=== PATIENT | female | born 1985 | race Caucasian/White ===

== ENCOUNTER 2019-06-01 08:21 | Emergency (ER) | payer OTHER, SELFPAY ==
[2019-06-01] VITALS (11 sets, daily range): BP systolic 99–119; BP diastolic 31–78; PULSE 56–86; RESP 15–22; TEMP 36.9; O2SAT 98–100
[2019-06-01 10:04] LABS: Hematocrit 48.4 % (36-46); Hemoglobin 16.5 g/dL (12.0-16.0); Mean Corpuscular HGB Conc 34.1 % (30-36); Mean Corpuscular Hemoglobin 30.5 PG (26-34); Mean Corpuscular Volume 89.6 fL (80-100); Red Cell Distribution Width 12.9 % (11.6-14.8); White Blood Cell Count 4.9 X10^3/uL (4.5-11.0)
[2019-06-01 10:13] LABS: Alanine Aminotransferase 20 IU/L (9-52); Albumin 4.5 g/dL (3.5-5.0); Albumin Globulin Ratio 1.4 (1.0-2.8); Alkaline Phosphatase 117 U/L (38-126); Aspartate Aminotransferase 25 IU/L (14-36); Bilirubin Total 0.6 mg/dL (0.2-1.3); Blood Urea Nitrogen 12 mg/dL (7-17); Calcium 9.6 mg/dL (8.4-10.2); Carbon Dioxide 27 mmol/L (22-32); Chloride 100 mmol/L (98-107); Estimated Glomerular Filt Rate > 60.0 mL/min (>60); Globulin 3.2 g/dL (1.7-4.1); Glucose 345 mg/dL (70-100); HEMOLYSIS 17 (0-50); Potassium 4.4 mmol/L (3.4-5.1); Sodium 136 mmol/L (137-145); Total Protein 7.7 g/dL (6.3-8.2)
--- NOTE | 2019-06-01 10:14 | ED.WEAKNESS ---
HPI - Weakness General Chief complaint: Weakness Stated complaint: FATIGUE,THIRSTY,FREQUENT URINATION Time Seen by Provider: 06/01/19 08:31 Source: patient Mode of arrival: ambulatory Limitations: no limitations History of Present Illness HPI Narrative: Patient comes emergency department complaining of excessive thirst and frequent urination, as well as fatigue, which have been going on for the last 2 weeks. Patient states she also feels jittery most of the time. She denies any fevers or chills. No cough or shortness of breath. No unusual nausea, the patient states she is nauseated all the time at baseline. Patient has a history of colitis, and has had a complete colectomy with internal J pouch. She states that she is able to have bowel movements through her anus, and that they are normally quite watery. She states occasionally, she will have a slightly thicker bowel movement, but it is still always very runny. Patient states that she has been able to eat, and in fact, has been eating more food than usual lately. She denies any dizziness. No other complaints at this time. She is not known to be diabetic. She had her thyroid last checked a couple of years ago and said it was okay. She states she did have some adrenal issues after being on long-term, high-dose prednisone years ago, but that she has not been on prednisone for years, and is not aware of any ongoing adrenal issues stemming from this. Related Data Previous Rx's Medication Instructions Recorded metformin 500 mg PO BID #30 tab 06/01/19 Allergies Allergy/AdvReac Type Severity Reaction Status Date / Time No Known Drug Allergies Allergy Verified 06/01/19 08:50 Review of Systems Constitutional Constitutional: Denies chills, Reports fatigue, Denies fever(s), Denies frequent falls, Denies lethargy and Denies weakness Eyes Eyes: Denies change in vision, Denies eye discharge, Denies irritation and Denies loss of vision ENT Ears, Nose, Mouth, and Throat: Denies change in voice, Denies dizziness, Denies neck pain, Denies sore throat and Denies throat swelling Cardiovascular Cardiovascular: Denies chest pain, Denies irregular heart rhythm, Denies lightheadedness, Denies palpitations, Denies dyspnea, Denies dyspnea on exertion and Denies orthopnea Respiratory Respiratory: Denies cough, Denies dyspnea, Denies dyspnea on exertion and Denies wheezing Gastrointestinal Gastrointestinal: Denies abdominal pain, Denies change in bowel habits, Reports diarrhea (At baseline), Reports nausea and Denies vomiting Genitourinary Genitourinary: Denies hematuria, Denies flank pain, Denies urinary incontinence and Denies urinary urgency Musculoskeletal Musculoskeletal: Denies back pain, Denies muscle weakness, Denies neck pain, Denies numbness and Denies tingling Integumentary/Breasts Skin/Breast: Denies pruritus, Denies erythema, Denies rash and Denies wounds Neurologic Neurologic: Denies behavioral changes, Denies confusion, Denies dizziness, Denies frequent falls, Denies loss of vision, Denies numbness, Denies tingling and Denies weakness Psychiatric Psychiatric: Denies anxiety, Denies behavioral changes, Denies confusion, Denies depression, Denies homicidal ideation and Denies suicidal ideation Endocrine Endocrine: Reports fatigue, Denies flushing, Reports polyphagia, Reports polydipsia, Reports polyuria and Denies palpitations Hematologic/Lymphatic Hematologic/Lymphatic: Denies easy bruising Allergic/Immunologic Allergic/Immunologic: Denies urticaria, Denies throat swelling and Denies wheezing [facility] Medical History Colitis (Acute) Endometrial polyp (Inactive) Right ovarian cyst (Inactive) Small bowel obstruction due to adhesions (Inactive) Surgical History H/O colectomy (Acute) History of bowel resection History of removal of ovarian cyst (Acute) Status post ovarian cystectomy Family History (Updated 08/30/16 @ 00:00 by Conversion Provider) Brother Age: 30 Mental health problem Father Age: 54 High cholesterol Grandfather Age: 67 Heart disease Social History Smoking Status: Current every day smoker Family History Brother Age: 30 Mental health problem Father Age: 54 High cholesterol Grandfather Age: 67 Heart disease Social History Smoking Status: Current every day smoker Exam Initial Vital Signs Initial Vital Signs: Vital Signs Temperature 98.4 F 06/01/19 08:30 Pulse Rate 65 09/19/19 08:30 Respiratory Rate 20 06/01/19 08:30 Blood Pressure 119/78 06/01/19 08:30 Pulse Oximetry 100 06/01/19 08:30 Const General: cooperative and well developed Nutritional Appearance: thin Orientation: alert, awake, oriented x3 and not confused [facility] Head: normocephalic and atraumatic Ears: external ears normal Nose: external nose normal and No nasal discharge Face and sinus: face symmetric and No dry mucous membranes Mouth: oral mucosae normal and moist mucous membranes Teeth and gingiva: dentition normal Eyes General: appearance normal, both eyes and all related structures Eyelids: eyelids normal Conjunctivae: conjunctivae normal Sclera: sclerae normal Pupils: PERRL EOM: EOM intact bilaterally Neck Neck: normal visual inspection, trachea midline, No lymphadenopathy, No midline deformity and No JVD Lymphatic: No lymphedema Chest Chest: normal inspection of the chest Resp Effort & Inspection: normal respiratory effort, able to speak in complete sentences, no respiratory distress and no use of accessory muscles Auscultation: clear to auscultation bilaterally, no rales, no rhonchi and no wheezes Cardio Rate: regular rate Rhythm: regular rhythm Heart Sounds: no click, no gallops, no murmurs and no rubs Pulses: normal peripheral pulses GI Inspection: non-distended Palpation: soft, no hepatosplenomegaly, No guarding, No pulsatile mass and No tender Auscultation: normal bowel sounds Back/Spine/Pelvis Back: No CVA tenderness Cervical Spine: cervical ROM normal and No pain with cervical ROM Thoracic/Lumbar Spine: thoracic and lumbar spine normal to inspection Skin General: no rashes or lesions noted, No jaundice and No petechiae Neuro General: alert, awake, oriented x3, gait normal and no focal motor deficits Speech: speech normal Extrem General: full ROM, no clubbing, cyanosis or edema, no pedal edema and no calf tenderness Psych Appearance: well kempt Mental Status: mental status grossly normal Attitude: cooperative Thought Content: normal and suicidality Judgment: judgment good Course Course Course Narrative: Patient was worked up with labs and urinalysis, and given a L 0.9 normal saline in the emergency department. She was found to have an elevated blood glucose at 345. She was given 10 units of insulin IV in the emergency department. I spoke with Dr. Adan, who was on-call for Family Medicine to try to set up expedited follow-up for the patient. He stated that somebody in his office could see the patient, most likely Dr. Mckenzie, and the patient should call his office. He recommended starting metformin for the hyperglycemia. At his request, I did add C-peptide, insulin level, and hemoglobin A1c to the patient's labs. I discussed all this with the patient, and the fact that she has a significantly elevated blood sugar and has developed diabetes. The patient understands, and states she will follow up. I have prescribed metformin for her. Blood sugars improved to 144 after IV insulin. Orders Ordered: Discontinued Medications Sodium Chloride (Normal Saline 0.9%) 1,000 mls @ 1,000 mls/hr IV BOLUS ONE Stop: 06/01/19 11:12 Last Infusion: 06/01/19 11:53 Dose: 0 mls/hr Documented by: Admin: 06/01/19 10:29 Dose: 1,000 mls/hr Documented by: ESTER Insulin Human Regular (Humulin R) 10 unit IV NOW ONE Stop: 06/01/19 12:10 Last Admin: 06/01/19 12:15 Dose: 10 unit Documented by: ESTER Cosigned by: DONELL Vital Signs Vital signs: Vital Signs - 8 hr 06/01/19 12:20 06/01/19 13:05 Pulse Rate 60 56 L Respiratory Rate 15 15 Blood Pressure 119/73 Blood Pressure [Left Arm] 105/67 Pulse Oximetry 100 98 MDM - Weakness Medical Records Attestation: I reviewed the patient's medical records. Lab Data Attestation: I reviewed the patient's lab results. Result diagrams: 06/01/19 09:50 06/01/19 09:50 Labs: Lab Results 06/01/19 06/01/19 06/01/19 Range/Units 09:50 09:50 09:50 WBC 4.9 (4.5-11.0) X10^3/uL RBC 5.40 H (4.0-5.2) X10^6/uL Hgb 16.5 H (12.0-16.0) g/dL Hct 48.4 H (36-46) % MCV 89.6 (80-100) fL MCH 30.5 (26-34) PG MCHC 34.1 (30-36) % RDW 12.9 (11.6-14.8) % Plt Count 144 L (150-400) X10^3/uL Plt Morphology Comment RBC Morphology Normal morphology Sodium 136 L (137-145) mmol/L Potassium 4.4 (3.4-5.1) mmol/L Chloride 100 (98-107) mmol/L Carbon Dioxide 27 (22-32) mmol/L BUN 12 (7-17) mg/dL Creatinine 0.40 L (0.52-1.04) mg/dL Estimated GFR > 60.0 (>60) mL/min BUN/Creatinine Ratio 30.0 H (6-22) Glucose 345 H (70-100) mg/dL Hemoglobin A1c (4.0-6.0) % Calcium 9.6 (8.4-10.2) mg/dL Total Bilirubin 0.6 (0.2-1.3) mg/dL AST 25 (14-36) IU/L ALT 20 (9-52) IU/L Alkaline Phosphatase 117 (38-126) U/L Total Protein 7.7 (6.3-8.2) g/dL Albumin 4.5 (3.5-5.0) g/dL Globulin 3.2 (1.7-4.1) g/dL Albumin/Globulin Ratio 1.4 (1.0-2.8) Lipase 249 (23-300) U/L TSH (0.47-4.68) uIU/mL Urine Color Urine Appearance Urine pH (4.5-8.0) Ur Specific [place] (1.000-1.035) Urine Protein (Negative) Urine Glucose (UA) (Negative) g/dL Urine Ketones (NEGATIVE) Urine Occult Blood (Negative) Urine Nitrate (Negative) Urine Bilirubin (NEGATIVE) Urine Urobilinogen (0.2) E.U./dL Ur Leukocyte Esterase (NEGATIVE) Urine RBC (0-5/HPF) Urine WBC (0-5/HPF) Urine Bacteria (None) Ur Culture Indicated? Micro UA Comment 06/01/19 06/01/19 06/01/19 Range/Units 09:50 09:50 10:00 WBC (4.5-11.0) X10^3/uL RBC (4.0-5.2) X10^6/uL Hgb (12.0-16.0) g/dL Hct (36-46) % MCV (80-100) fL MCH (26-34) PG MCHC (30-36) % RDW (11.6-14.8) % Plt Count (150-400) X10^3/uL Plt Morphology Comment RBC Morphology Sodium (137-145) mmol/L Potassium (3.4-5.1) mmol/L Chloride (98-107) mmol/L Carbon Dioxide (22-32) mmol/L BUN (7-17) mg/dL Creatinine (0.52-1.04) mg/dL Estimated GFR (>60) mL/min BUN/Creatinine Ratio (6-22) Glucose (70-100) mg/dL Hemoglobin A1c 11.3 H (4.0-6.0) % Calcium (8.4-10.2) mg/dL Total Bilirubin (0.2-1.3) mg/dL AST (14-36) IU/L ALT (9-52) IU/L Alkaline Phosphatase (38-126) U/L Total Protein (6.3-8.2) g/dL Albumin (3.5-5.0) g/dL Globulin (1.7-4.1) g/dL Albumin/Globulin Ratio (1.0-2.8) Lipase (23-300) U/L TSH 2.44 (0.47-4.68) uIU/mL Urine Color Yellow Urine Appearance Clear Urine pH 5.0 (4.5-8.0) Ur Specific [place] <=1.005 (1.000-1.035) Urine Protein Negative (Negative) Urine Glucose (UA) 2+ H (Negative) g/dL Urine Ketones 1+ H (NEGATIVE) Urine Occult Blood Negative (Negative) Urine Nitrate Negative (Negative) Urine Bilirubin Negative (NEGATIVE) Urine Urobilinogen 0.2 (0.2) E.U./dL Ur Leukocyte Esterase Negative (NEGATIVE) Urine RBC None seen (0-5/HPF) Urine WBC None seen (0-5/HPF) Urine Bacteria None seen (None) Ur Culture Indicated? Cult not indicated Micro UA Comment Microscopic normal Point of Care Testing Test Results Negative Glucose POC 144 Discharge Plan Departure Patient Disposition: Home Clinical Impression: Diabetes Qualifiers: Diabetes mellitus type: type 2 Diabetes mellitus assisted insulin use: without terminal gauger use Diabetes mellitus complication status: without complication Qualified Code(s): E11.9 - Type 2 diabetes mellitus without complications Discharge Date/Time: 06/01/19 13:06 Instructions: DI for Diabetes Type 2 Activity Restrictions/Additional Instructions: Your blood sugar was found to be 345, which is about 3 and half times normal. This indicates that you have developed diabetes. Your case has been discussed with Dr. Adan, who is on-call for Family Medicine. He and his associates can see you in their clinic in the next week. He would like you to start metformin for your diabetes. Please call their clinic this afternoon to set up an appointment. You have been given IV insulin here in the emergency department, and will be given a prescription for the oral medication to take at home. Prescriptions: New metformin 500 mg tablet 500 mg PO BID Qty: 30 RF: 0 Referrals: James Gaston MD [Primary Care Provider] -
[2019-06-01 10:23] LABS: Bacteria Urine None Seen; RBC Urine None Seen (0-5/HPF); WBC Urine None Seen (0-5/HPF)
[2019-06-01 10:25] LABS: Appearance Urine UA CLEAR; Bilirubin Urine UA NEGATIVE (NEGATIVE); Color Urine UA YELLOW; Glucose Urine UA 2+ g/dL (Negative); Ketones Urine UA 1+ (NEGATIVE); Leukocyte Esterase Urine UA NEGATIVE (NEGATIVE); Nitrite Urine UA NEGATIVE (Negative); Occult Blood Urine UA NEGATIVE (Negative); Protein Urine UA NEGATIVE (Negative); Specific Gravity Urine UA <=1.005 (1.000-1.035); Urobilinogen Urine UA 0.2 E.U./dL (0.2)
[2019-06-01 10:26] LABS: RBC Morphology Normal Morphology
[2019-06-01 10:27] LABS: Platelet Count 144 X10^3/uL (150-400)
[2019-06-01] MEDS: SODIUM CHLORIDE 0.9% 1,000 ML 1000 ML IV (10:29)
[2019-06-01 10:31] LABS: Culture Indicated Urine Cult Not Indicated; Urine Comments Microscopic Normal
[2019-06-01 10:40] LABS: Lipase 249 U/L (23-300)
[2019-06-01] MEDS: INSULIN REGULAR 100 UNIT/ML 3 ML VIAL 10 UNIT IV (12:15)
[2019-06-01 12:48] LABS: Hemoglobin A1C% w Est Avg Glu 11.3 % (4.0-6.0)
[2019-06-01 13:22] LABS: Thyroid Stimulating Hormone 2.44 uIU/mL (0.47-4.68)
[2019-06-03 17:13] LABS: C Peptide 0.44 ng/mL (0.80-3.85)
[2019-06-03 17:24] LABS: Insulin Level Total 0.7 uIU/mL (2.0-19.6)
== END 2019-06-01 13:06 | disposition home or self-care (01) ==
PROVIDERS: Emergency Provider Emergency Medicine
DX: E11.9 Type 2 diabetes mellitus without complications (principal)
CPT/HCPCS: 36591; 80053; 81001; 81025; 82962; 83036; 83525; 83690; 84443; 84681; 85027; 96361; 96374; 99284

== ENCOUNTER → 2019-06-09 13:36 | Outpatient (CLI) | payer OTHER, SELFPAY ==
--- NOTE | 2019-06-09 14:55 | DIET.PN ---
Dietary Note DIABETES Nutrition Initial Assessment:? ASSESS:?? Ms. Jeronimo was seen for new DX of Type 1 Diabetes w/ complications. She has a hx of total colectomy w/ a J pouch. Reports 5 bowel obstructions since dx 16 yrs ago. She general follows a low fiber, high carb/fat diet avoiding milk and raw vegetables. She is able to consume fruits and nuts if she chews until paste. She shared with me she has a very physical, high stress job which she works 12 sometimes 14 hr days. She has lost 15# in the last few months and has experienced extreme thirst, fatigue, leg cramps and vision changes. ??? LABS: Per pt report:? A1c: 11.3 B-281 ? MEDS:?? Novolog 4 u w/ meals ? Weight: 118# (in office) Height: 65? UBW: 125# BMI: 19.6 ? Exercise:? physical job NUTRITION DX 1. Altered Nutrition related labs related to impaired glucose metabolism, lack of previous exposure to accurate nutrition information as evidenced by pt report, dx of diabetes, previous diet high in refined carbohydrates.? INTERVENTION(s): 1. Discussed pathophysiology of diabetes including the role of different organs in controlling BG. Reviewed A1c and its correlation to blood glucose numbers. Discussed recommended BG ranges. 2. Reviewed importance of self-monitoring, how often, and when to check. 3. Reviewed hyper/hypoglycemia and treatment. 4. Reviewed safe disposal of equipment (strip/lancets/insulin needles). 5. Discussed impact of nutrition/diet on blood sugar control.? Discussed fed versus non-fed state.?? 6. Discussed the effect of carbohydrates/protein/fat on blood sugar control.? Stressed importance of consistent carbohydrate intake at each meal and provided instructions for recommended servings/portions of carbohydrates/protein per meal. Provided pt with educational material. 7. Reviewed carbohydrate counting and measuring carbohydrate content via serving sizes and reading nutrition labels.? Provided handouts.?? 8. Discussed the difference between simple versus complex carbohydrates and the effect of fiber on blood sugar control.? Discussed recommended fiber sources and amounts for patients GI complications. 9. Stressed importance of meal timing and not going >4-5 hours between meals. Encouraged adding protein to each meal to support glucose control. Provided list of protein foods. Discussed best protein options for heart health and to alleviate hunger. Patient agreeable. 10. Discussed importance of hydration and electrolyte balance. Recommended low sugar electrolyte replacements if experiencing diarrhea or vomiting. 11. Discussed healthy weight goals. Discussed importance of resistance training to increase insulin sensitivity and lean muscle mass. 12. Reviewed medications, insulin management, and how it effects BG. MONITOR/EVALUATE: Anticipate excellent compliance.? Nutrition follow-up schedule for 3 weeks to review BG, weight, food record. Recommended she keep a food record along with blood glucose log to monitor foods that trigger GI complications as well as hyperglycemia.
== END ==
PROVIDERS: PCP Hospitalist; Visit Provider Hospitalist
DX: E10.9 Type 1 diabetes mellitus without complications (principal); Z79.4 Long term (current) use of insulin
CPT/HCPCS: 97802

== ENCOUNTER → 2019-07-04 10:51 | Outpatient (CLI) | payer OTHER, SELFPAY ==
--- NOTE | 2019-07-04 12:02 | DIET.PN ---
Dietary Progress Note ? ? ASSESS:?Ms. Jeronimo was seen for diabetes nutrition F/U. She has been keeping a record of blood glucose. Reports fasting blood glucose continue to be elevated, however post prandial and evening BG have mostly been within recommended values. She has a had a few drops in blood sugar, but contributes this to inconsistent carb to insulin ratios. Complains of chronic fatigue, but relates this to stresses of work. She has been given some extra time off in the upcoming weeks to care for her health. Dr. Green has added 10 u of lantus in the evening to help cover morning hyperglycemia. She is scheduled to see Dr. Kinsey (insurance follow up specialist) in September. ? LABS: A1c: 11.3 FB-250 2 hr PP/evening:??120-180 37 x1 (discussed rule of 15) ? Weight: 120lb ? Meds: Decreasing Novolog from 4 u to 3 u w/ meals. Adding Lantus 10 u in evening. ? ? NUTRITION Dx? 1. Altered nutrition related labs r/t type 1 DM, inconsistent carbohydrate intake, hx of total colectomy w/ J pouch as evidenced by pt report, dietary recall.?? ? INTERVENTION? 1. Reviewed blood sugar log and implications/reasons for elevated/decreased blood sugar.? Pt with good understanding.? 2. Reviewed carbohydrate counting and importance of consistent carbohydrate intake.? 3. Reviewed meal intake and importance of balanced meals (emma with insulin regimen).??? 4. Discussed changes in medication and importance of closely monitoring BG to decrease hypo/hyperglycemia. 5. Reviewed hypoglycemia treatment and rule of 15. ? MONITOR/EVALUATE: Pt receptive to information provided.? Will schedule follow-up after new labs.
== END ==
PROVIDERS: PCP Hospitalist; Visit Provider Hospitalist
DX: E10.9 Type 1 diabetes mellitus without complications (principal); Z79.4 Long term (current) use of insulin; R53.83 Other fatigue; Z71.3 Dietary counseling and surveillance
CPT/HCPCS: 97803

== ENCOUNTER → 2019-11-18 12:49 | Outpatient (CLI) | payer OTHER, SELFPAY ==
--- NOTE | 2019-11-18 12:55 | DI.RAD.S_ITS ---
PROCEDURE: XR SHOULDER LT MIN 2V INDICATIONS: l shoulder pain TECHNIQUE: 3 views of the shoulder were acquired. COMPARISON: None. FINDINGS: Bones: No fractures or dislocations. No suspicious bony lesions. Visualized ribs appear intact. Soft tissues: No suspicious soft tissue calcifications. IMPRESSION: No acute radiographic findings. If pain persists, followup imaging in 5-7 days is recommended to exclude occult fracture. Dictated by: Nusrat Hughes M.D. on 11/18/2019 at 12:35 Approved by: Nusrat Hughes M.D. on 11/18/2019 at 12:36
== END ==
PROVIDERS: Referring Provider Physician Assistant; Visit Provider Physician Assistant
DX: M25.512 Pain in left shoulder (principal)
CPT/HCPCS: 73030

== ENCOUNTER → 2020-06-04 13:36 | Outpatient (CLI) | payer OTHER, SELFPAY ==
[2020-06-05 14:18] LABS: COVID19 Sendout Not Detected (Not Detect)
== END ==
PROVIDERS: Visit Provider Physician Assistant
DX: R07.89 Other chest pain (principal); R05 Cough; R09.89 Other specified symptoms and signs involving the circulatory and respiratory systems; R50.9 Fever, unspecified
CPT/HCPCS: 87635

== ENCOUNTER 2021-06-08 12:40 | Emergency (ER) | payer OTHER, SELFPAY ==
[2021-06-08 12:43] VITALS: BP 145/67; PULSE 76; RESP 16; TEMP 36.7; O2SAT 98; BMI 20.9
--- NOTE | 2021-06-08 12:48 | DI.RAD.S_ITS ---
PROCEDURE: XR CHEST 1V INDICATIONS: chest pain TECHNIQUE: One view of the chest was acquired. COMPARISON: [facility], , CHEST FOR PICC PLACEMENT, 10/02/2016, 11:48. FINDINGS: Surgical changes and devices: None. Lungs and pleura: Lungs are clear. No pleural effusions or pneumothorax. Mediastinum: Mediastinal contours appear normal. Heart size is normal. Bones and chest wall: No suspicious bony lesions. Overlying soft tissues appear unremarkable. IMPRESSION: Portable chest within normal limits. Dictated by: Shaw Mccabe M.D. on 06/08/2021 at 12:24 Approved by: Shaw Mccabe M.D. on 06/08/2021 at 12:24
--- NOTE | 2021-06-08 13:14 | ED_ITS ---
HPI - Chest Pain General Chief Complaint: Chest Pain Stated Complaint: HEART PAIN/LT ARM PAIN/SOB Time Seen by Provider: 06/08/21 12:51 Source: patient Mode of arrival: Ambulatory Limitations: no limitations History of Present Illness HPI narrative: Patient is a 36-year-old Diabetic not vaccinated for COVID presenting with chest discomfort cough and congestion and increasing shortness of breath. She says she felt well yesterday however today while at work she noticed she is having increasing shortness of breath with exertion she has had some chest discomfort as well. She denies any abdominal pain no nausea or vomiting. She is having headache and some fatigue as well. Related Data Previous Rx's Medication Instructions Recorded blood sugar diagnostic #400 each 06/02/19 blood-glucose meter #1 each 06/02/19 lancets #400 each 06/02/19 pen needle, diabetic 32 gauge x #300 each 06/02/1911/26 insulin glargine 100 unit/mL (3 10 unit SUBCUT DAILY #15 ml 06/29/19 mL) subcutaneous pen (Lantus Solostar U-100 Insulin) insulin glargine 100 unit/mL (3 10 unit SUBCUT .QHS #15 ml 07/12/19 mL) subcutaneous pen (Basaglar KwikPen U-100 Insulin) insulin aspart U-100 100 unit/mL 3 unit SUBCUT TID #15 ml 10/30/19 (3 mL) subcutaneous pen (Novolog Flexpen U-100 Insulin aspart) medroxyprogesterone 10 mg tablet 10 mg PO DAILY #30 tab 01/03/21 albuterol sulfate 90 mcg/actuation 2 puff INHALATION Q4-6H PRN #8.5 g 06/08/21 aerosol inhaler Allergies Allergy/AdvReac Type Severity Reaction Status Date / Time No Known Drug Allergies Allergy Verified 06/08/21 12:47 Review of Systems Review of Systems Narrative: GENERAL: Generalized fatigue, denies fever, see HPI HEENT: Denies sinus pain, ear pain, sore throat, difficulty swallowing, neck pain RESPIRATORY: See HPI CARDIOVASCULAR: Denies chest pain, palpitations, orthopnea, edema GASTROINTESTINAL: Denies nausea, vomiting, abdominal pain, diarrhea, constipation, melena. : Denies dysuria, frequency, incontinence, hematuria, urinary retention, flank pain. MUSCULOSKELETAL: Denies weakness, joint pain, or bony pain SKIN: No rash, no erythema, no pruritus NEUROLOGIC: Denies weakness, dizziness, headache, numbness, change in speech, confusion PSYCHIATRIC: No concerning psychosocial issues. 12 point review of systems is negative except for those stated above and HPI Patient History Medical History (Updated 06/08/21 @ 15:40 by Fany Coulter DO) Colitis Endometrial polyp Right ovarian cyst Small bowel obstruction due to adhesions Surgical History H/O colectomy History of bowel resection History of removal of ovarian cyst Status post ovarian cystectomy Family History Brother Age: 32 Mental health problem Father Age: 56 High cholesterol Grandfather Age: 69 Heart disease Social History Smoking Status: Current every day smoker Smoking Status: Current every day smoker alcohol intake frequency: holidays/special occasions only Substance Use Type: marijuana Exam Initial Vital Signs Initial Vital Signs: Vital Signs Temperature 98.1 F 06/08/21 12:43 Pulse Rate 76 06/08/21 12:43 Respiratory Rate 16 06/08/21 12:43 Blood Pressure 145/67 H 06/08/21 12:43 Pulse Oximetry 98 06/08/21 12:43 GENERAL: Thin well-appearing 36-year-old female and in no acute distress. HEENT: Head atraumatic,EOMI, pupils reactive, face symmetric, moist mucous membranes CARDIOVASCULAR: Regular rate and rhythm without murmurs, rubs or gallops. RESPIRATORY: Breath sounds equal bilaterally, no wheezes rales or rhonchi. ABDOMEN: Soft, nontender. Normoactive bowel sounds all 4 quadrants. No guarding or rebound. EXTREMITIES: Normal range of motion, no clubbing or edema. Neurovascularly intact NEUROLOGICAL: Alert and oriented x4.Normal gait and speech. SKIN: Warm, dry, no laceration, no petechiae, no rashes or lesions. Scores PERC Score Age greater than or equal to 50 years: No Heart rate greater than or equal to 100 bpm: No Room Air O2 Sat less than 95%: No Unilateral leg swelling: No Recent trauma or surgery: No Hemoptysis: No Prior PE or DVT: No Hormone Use: No Total PERC Score: 0 Course Orders Ordered: ED Orders 06/08/21 12:48 XR chest 1V Stat 06/08/21 12:49 COVID19 -Nasal swab/Pre-Proc Stat 06/08/21 13:01 EKG-12 Lead Stat 06/08/21 13:24 Complete Blood Count AUTO DIFF Stat Comprehensive Metabolic Panel Stat Lipase Stat Troponin & CK Cardiac Panel Stat Discontinued Medications Albuterol/Ipratropium (Albuterol/Ipratropium 3 Ml Ampul) 3 ml INH NOW ONE Stop: 06/08/21 15:06 Last Admin: 06/08/21 15:22 Dose: 3 ml Documented by: EDWARD Vital Signs Vital signs: Vital Signs - 8 hr 06/08/21 12:43 06/08/21 15:24 06/08/21 15:54 Temperature 98.1 F Pulse Rate 76 48 L 59 L Respiratory Rate 16 14 15 Blood Pressure 145/67 H 129/73 Pulse Oximetry 98 97 99 MDM - Chest Pain Lab Data Result diagrams: 06/08/21 13:24 06/08/21 13:24 Labs: Lab Results 06/08/21 06/08/21 06/08/21 Range/Units 12:49 13:24 13:24 WBC 6.9 (4.5-11.0) X10^3/uL RBC 4.59 (4.0-5.2) X10^6/uL Hgb 14.0 (12.0-16.0) g/dL Hct 42.4 (36-46) % MCV 92.3 (80-100) fL MCH 30.5 (26-34) PG MCHC 33.1 (30-36) % RDW 13.4 (11.6-14.8) % Plt Count 140 L (150-400) X10^3/uL Neut % (Auto) 67.0 (50-75) % Lymph % (Auto) 21.8 L (25-40) % [place] % (Auto) 8.7 (3-14) % Eos % (Auto) 1.9 L (2-4) % Baso % (Auto) 0.6 (0-2) % Neut # (Auto) 4600 (0891-4837) /uL Lymph # (Auto) 1500 (2277-1470) /uL [place] # (Auto) 600 (0-900) /uL Eos # (Auto) 100 (0-450) /uL Baso # (Auto) 0 (0-100) /uL Sodium 139 (137-145) mmol/L Potassium 4.1 (3.4-5.1) mmol/L Chloride 107 (98-107) mmol/L Carbon Dioxide 28 (22-32) mmol/L BUN 17 (7-17) mg/dL Creatinine 0.90 (0.52-1.04) mg/dL Estimated GFR > 60.0 (>60) mL/min BUN/Creatinine Ratio 18.9 (6-22) Glucose 215 H (70-100) mg/dL Calcium 9.4 (8.4-10.2) mg/dL Total Bilirubin 0.8 (0.2-1.3) mg/dL AST 20 (14-36) IU/L ALT 12 (<35) IU/L Alkaline Phosphatase 83 (38-126) U/L Total Creatine Kinase 31 (30-135) U/L CK-MB (CK-2) TNP CK-MB (CK-2) Rel Index TNP Troponin I < 0.012 (0.01-0.034) ng/mL Total Protein 7.0 (6.3-8.2) g/dL Albumin 4.1 (3.5-5.0) g/dL Globulin 2.9 (1.7-4.1) g/dL Albumin/Globulin Ratio 1.4 (1.0-2.8) Lipase 77 (23-300) U/L SARS-CoV-2 (PCR) Negative (Negative) Point of Care Testing Test Results Negative Urine Dip Bedside Urine Glucose 250 mg/dl Bedside Urine Bilirubin - Negative Bedside Urine Ketone - Negative Urine Specific [place] 1.025 Bedside Urine Occult Blood - Negative Bedside Urine pH 6.0 Bedside Urine Protein - Negative Bedside Urine Urobilinogen - Negative Bedside Urine Nitrite - Negative Bedside Urine Leukocytes - Negative Esterase Imaging Data Chest x-ray: Radiologist's Impression: PROCEDURE:? XR CHEST 1V ? INDICATIONS:? chest pain ? TECHNIQUE:? One view of the chest was acquired.? ? COMPARISON:? [facility], , CHEST FOR PICC PLACEMENT, 10/02/2016, 11:48. ? FINDINGS:? ? Surgical changes and devices:? None.? ? Lungs and pleura:? Lungs are clear.? No pleural effusions or pneumothorax.? ? Mediastinum:? Mediastinal contours appear normal.? Heart size is normal.? ? Bones and chest wall:? No suspicious bony lesions.? Overlying soft tissues appear unremarkable.? ? IMPRESSION:? ? Portable chest within normal limits. ? ? ? Dictated by: Shaw Mccabe M.D. on 06/08/2021 at 12:24 ? ? Approved by: Shaw Mccabe M.D. on 06/08/2021 at 12:24 ? ECG Data Interpretation: Sinus rhythm rate 59 RI interval 134 QRS [address] changes artifact noted MDM Narrative Medical decision making narrative: Patient does have some signs and symptoms consistent with upper respiratory virus. Fortunately COVID test is negative today she was previously tested last week and was negative as well. She is not on hormones and low risk for pulmonary embolism. Blood work is overall reas suring. She is feeling a bit better after albuterol. She smoked for about 23 years. 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 Discharge Plan Departure Patient Disposition: Home Clinical Impression: RAD (reactive airway disease) Qualifiers: Asthma severity: mild Asthma persistence: intermittent Asthma complication type: with acute exacerbation Qualified Code(s): J45.21 - Mild intermittent asthma with (acute) exacerbation Instructions: DI for Reactive Airway Disease-Adult Activity Restrictions/Additional Instructions: *You have been diagnosed with reactive airway disease *What to do: At this time her blood work and COVID are negative. You may have some inflammation in your lungs. *Continue to take medications as directed Albuterol inhaler 1-2 puffs every 4 hours if needed for shortness of breath-->SENT TO [facility] *Follow up with your primary care provider in 2-3 days *Return to ER if you should have increasing shortness of breath, weakness, chest pain or any new, worsening or concerning symptoms Prescriptions: New albuterol sulfate 90 mcg/actuation HFA aerosol inhaler 2 puff inhalation Q4-6H PRN (Reason: shortness of breath or wheezing) Qty: 8.5 RF: 0 No Action (DME) blood-glucose meter kit See Rx Instructions .ROUTE .MEDSUPPLY Qty: 1 RF: 0 (DME) lancets misc See Rx Instructions .ROUTE .MEDSUPPLY Qty: 400 RF: 3 (DME) pen needle, diabetic 32 gauge x 3/16 needle See Rx Instructions .ROUTE .MEDSUPPLY Qty: 300 RF: 3 (DME) blood sugar diagnostic strip See Rx Instructions .ROUTE .MEDSUPPLY Qty: 400 RF: 3 Basaglar KwikPen U-100 Insulin 100 unit/mL (3 mL) insulin pen 10 unit SUBCUT .QHS Qty: 15 RF: 1 Novolog Flexpen U-100 Insulin 100 unit/mL (3 mL) insulin pen 3 unit SUBCUT TID Qty: 15 RF: 0 medroxyprogesterone 10 mg tablet 10 mg PO DAILY Qty: 30 RF: 0 Lantus Solostar U-100 Insulin 100 unit/mL (3 mL) insulin pen 10 unit SUBCUT DAILY Qty: 15 RF: 1
[2021-06-08 13:27] LABS: COVID19 -Nasal RAPID Negative (Negative)
[2021-06-08 13:45] LABS: Add Manual Diff / Slide Review NO; Basophils Absolute Auto 0 /uL (0-100); Basophils Percent Auto 0.6 % (0-2); Eosinophils Absolute Auto 100 /uL (0-450); Eosinophils Percent Auto 1.9 % (2-4); Hematocrit 42.4 % (36-46); Lymphocytes Absolute Auto 1500 /uL (1100-4500); Lymphocytes Percent Auto 21.8 % (25-40); Mean Corpuscular HGB Conc 33.1 % (30-36); Mean Corpuscular Hemoglobin 30.5 PG (26-34); Mean Corpuscular Volume 92.3 fL (80-100); Monocytes Absolute Auto 600 /uL (0-900); Monocytes Percent Auto 8.7 % (3-14); Neutrophils Absolute Auto 4600 /uL (1500-7000); Platelet Count 140 X10^3/uL (150-400); Red Blood Cell Count 4.59 X10^6/uL (4.0-5.2); Red Cell Distribution Width 13.4 % (11.6-14.8); White Blood Cell Count 6.9 X10^3/uL (4.5-11.0)
[2021-06-08 13:53] LABS: Alanine Aminotransferase 12 IU/L (<35); Albumin 4.1 g/dL (3.5-5.0); Albumin Globulin Ratio 1.4 (1.0-2.8); Alkaline Phosphatase 83 U/L (38-126); Aspartate Aminotransferase 20 IU/L (14-36); BUN Creatinine Ratio 18.9 (6-22); Bilirubin Total 0.8 mg/dL (0.2-1.3); Blood Urea Nitrogen 17 mg/dL (7-17); Calcium 9.4 mg/dL (8.4-10.2); Carbon Dioxide 28 mmol/L (22-32); Chloride 107 mmol/L (98-107); Creatine Kinase 31 U/L (30-135); Estimated Glomerular Filt Rate > 60.0 mL/min (>60); Globulin 2.9 g/dL (1.7-4.1); Glucose 215 mg/dL (70-100); HEMOLYSIS < 15 (0-50); Lipase 77 U/L (23-300); Potassium 4.1 mmol/L (3.4-5.1); Sodium 139 mmol/L (137-145)
[2021-06-08 14:04] LABS: Troponin I < 0.012 ng/mL (0.01-0.034)
[2021-06-08] MEDS: ALBUTEROL/IPRATROPIUM 3 ML AMPUL INH (15:22)
[2021-06-08 15:24] VITALS: PULSE 48; RESP 14; O2SAT 97
[2021-06-08 15:54] VITALS: BP 129/73; PULSE 59; RESP 15; O2SAT 99
== END 2021-06-08 15:54 | disposition home or self-care (01) ==
PROVIDERS: Emergency Provider Emergency Medicine
DX: J45.21 Mild intermittent asthma with (acute) exacerbation (principal); R05 Cough; R06.02 Shortness of breath; Z20.822 Contact with and (suspected) exposure to COVID-19
CPT/HCPCS: 36415; 71045; 80053; 81003; 81025; 82550; 83690; 84484; 85025; 87635; 93005; 94640; 99284; C9803

== ENCOUNTER → 2021-07-24 08:19 | Outpatient (CLI) | payer OTHER, SELFPAY ==
[2021-07-24 09:40] LABS: COVID19 -Nasal RAPID Negative (Negative)
== END ==
PROVIDERS: Visit Provider Specialist
DX: Z01.812 Encounter for preprocedural laboratory examination (principal); Z20.822 Contact with and (suspected) exposure to COVID-19
CPT/HCPCS: 87635

== ENCOUNTER 2021-07-25 08:22 | Day surgery (SDC) | payer OTHER, SELFPAY ==
[2021-07-22 10:39] VITALS: BMI 20.6
[2021-07-25] VITALS (10 sets, daily range): BP systolic 103–128; BP diastolic 55–90; PULSE 50–75; RESP 16–18; TEMP 36.1–36.7; O2SAT 98–100; BMI 20.6
--- NOTE | 2021-07-25 | PATH_ITS ---
[facility] Accession Number: [id number] . 01 Material submitted: . endometrium - ENDOMETRIAL BIOPSY . 02 Diagnosis: Endometrium, Biopsy: Secretory endometrium with focal features suggestive of exogenous hormone effects. No evidence of neoplasia or hyperplasia. MRV 07/29/2021 1342 Local . 02 Electronically signed: . Kaylie Mascorro MD, Pathologist NPI- [id number] . 01 Gross description: . ENDOMETRIAL BIOPSY: Received in formalin are multiple fragment(s) of [place], soft tissue measuring 2.7 x 1.0 x 0.8 cm in aggregate submitted entirely in 2 cassette(s) /QBJ 07/26/2021 0407 Local . 02 Pathologist provided ICD-10: N92.0 . 02 CPT . 805112 Performed at: 01 [facility] [address] [id number] MD Michael Laura MD Phone: [phone] Performed at: 02 [facility] [address] [place], [place] [id number] MD Kaylie Mascorro MD Phone: [phone]
[2021-07-25] MEDS: LACTATED RINGERS 1,000 ML 100 ML IV ×2 (09:08→11:05)
--- NOTE | 2021-07-25 10:00 | PM.PREOP ---
Pre-operative Note COVID-19 COVID-19 status: Negative Result date/Date tested (Pos, Neg/Pending): 07/24/21 Interval Note History & Physical reviewed/Exam performed by Physician: Yes Changes to H&P: No
--- NOTE | 2021-07-25 10:18 | SUR.OPER ---
Lithotomy on padded OR bed, head on pillow, arms secured on padded arm boards at <90 degrees abduction. Legs secured in padded yellow fins stirrups.
[2021-07-25] MEDS: CEFAZOLIN 1 GM VIAL 2 GM IV (11:06)
--- NOTE | 2021-07-25 11:31 | P.OP_ITS ---
Operative Date/Time/Diagnoses Date of procedure: 07/25/21 Time of procedure: 11:31 Pre-op diagnosis: Menorrhagia. 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 Surgeon: Stephanie Jama Click Yes if Unassisted: Yes Anesthesia Type: General Operative Notes Findings: No obvious fistula tract to the uterus or cervix. No specific intrauterine abnormalities. Closure Type: not applicable Specimen(s): other (Endometrial biopsies, uterine culture) Estimated Blood Loss (mL): 20 Blood products transfused: none Procedure in detail: The patient was brought to the operating room where she underwent general anesthesia. She was placed in low stirrups She was prepped and draped in usual sterile fashion with pulsatile stockings in place and functional, warming in place. Initially no antibiotics were indicated however decision was made intra operatively to give 2 g of Ancef. Her bladder was drained with in and out catheter. A single-tooth tenaculum was placed on the anterior lip of the cervix. Endometrial biopsy was performed and some of the tissue was swabbed to be sent for culture. The uterus was dilated to #8 Hegar dilator. The hysteroscope was placed into the uterus. Initially the uterus was examined with saline. The fluid was then switched to a sorbitol solution running in under constant suction. The resecting loop set at 80 W of cutting was used to resect areas of the endometrium to also sent to pathology. The endometrial biopsiesand the endometrial curettage was sent to pathology. The patient went to recovery room in good condition counts of instruments and sponges were correct. Estimated blood loss 20 mL. The sorbitol solution I=O approximately 4000 mL. Complications: none Post-operative Condition: stable Disposition: same day surgery Plan for aftercare: Home when awake and stable. Patient will be contacted with biopsy and culture results.
[2021-07-25] MEDS: ONDANSETRON 4 MG/2 ML INJ IV (11:37)
[2021-07-25] MEDS: OXYCODONE/ACETAMINOPHEN 5/325 TABLET 1 TAB PO ×2 (11:38→12:06)
[2021-07-25] MEDS: fentaNYL 100 MCG/2 ML INJ IV ×2 (11:38→11:49)
--- NOTE | 2021-07-25 11:56 | SUR.PHASEI ---
Report given to Lorena. pt states pain is a 5 and a half.
== END 2021-07-25 12:45 | disposition home or self-care (01) ==
PROVIDERS: Referring Provider Specialist; Visit Provider Specialist
PROC: 0UDB8ZZ Extraction of Endometrium, Via Natural or Artificial Opening Endoscopic (ICD-10-PCS; CPT 58558; principal; 2021-07-25 10:15)
DX: N92.0 Excessive and frequent menstruation with regular cycle (principal); K50.90 Crohn's disease, unspecified, without complications; Z98.0 Intestinal bypass and anastomosis status; F17.210 Nicotine dependence, cigarettes, uncomplicated; E10.9 Type 1 diabetes mellitus without complications; Z79.4 Long term (current) use of insulin
CPT/HCPCS: 58558; 82962; 87070; 87075; 87205; J0690; J1100; J2405; J2704; J3010

== ENCOUNTER → 2021-10-20 13:51 | Outpatient (CLI) | payer OTHER, SELFPAY ==
[2021-10-20 14:35] LABS: Appearance Urine UA CLEAR; Bilirubin Urine UA NEGATIVE (NEGATIVE); Color Urine UA YELLOW; Glucose Urine UA 3+ g/dL (Negative); Ketones Urine UA 1+ (NEGATIVE); Leukocyte Esterase Urine UA NEGATIVE (NEGATIVE); Nitrite Urine UA NEGATIVE (Negative); Occult Blood Urine UA 3+ (Negative); Protein Urine UA NEGATIVE (Negative); Urobilinogen Urine UA 0.2 E.U./dL (0.2)
[2021-10-20 14:36] LABS: pH Urine UA 5.5 (4.5-8.0)
[2021-10-20 14:51] LABS: Bacteria Urine None Seen; Culture Indicated Urine Cult Not Indicated; RBC Urine 10-30/HPF (0-5/HPF); Squamous Epithelial Cell Urine 0-1 /HPF (0-5/HPF); WBC Urine None Seen (0-5/HPF)
== END ==
PROVIDERS: Referring Provider Specialist; Visit Provider Specialist
DX: N39.0 Urinary tract infection, site not specified (principal)
CPT/HCPCS: 81003; 81015

== ENCOUNTER 2022-02-06 13:01 | Emergency (ER) | payer OTHER, SELFPAY ==
[2022-02-06 13:46] VITALS: BP 124/72; PULSE 63; RESP 16; TEMP 36.2; O2SAT 98
[2022-02-06 15:30] LABS: Add Manual Diff / Slide Review NO; Basophils Absolute Auto 100 /uL (0-100); Eosinophils Absolute Auto 200 /uL (0-450); Eosinophils Percent Auto 2.9 % (2-4); Hematocrit 43.8 % (36-46); Lymphocytes Absolute Auto 2000 /uL (1100-4500); Lymphocytes Percent Auto 32.3 % (25-40); Mean Corpuscular HGB Conc 34.4 % (30-36); Mean Corpuscular Hemoglobin 31.4 PG (26-34); Mean Corpuscular Volume 91.3 fL (80-100); Monocytes Absolute Auto 500 /uL (0-900); Monocytes Percent Auto 7.9 % (3-14); Neutrophils Absolute Auto 3500 /uL (1500-7000); Neutrophils Percent Auto 55.9 % (50-75); Platelet Count 195 X10^3/uL (150-400); Red Blood Cell Count 4.79 X10^6/uL (4.0-5.2); Red Cell Distribution Width 13.7 % (11.6-14.8); White Blood Cell Count 6.2 X10^3/uL (4.5-11.0)
--- NOTE | 2022-02-06 15:43 | DI.CT.S_ITS ---
PROCEDURE: CT ABDOMEN PELVIS W CON INDICATIONS: RLQ pain, hx small bowel obstruction. History of ulcerative colitis and total colectomy. TECHNIQUE: After the administration of oral and IV contrast, axial sections were acquired from the lung bases to the pubic symphysis. Coronal and sagittal reformats were performed. For radiation dose reduction, the following was used: automated exposure control, adjustment of mA and/or kV according to patient size. COMPARISON: US, PELVIC COMPLETE, 11/26/2016, 10:18. [facility], CT, ABD/PELVIS W/CON (PNL), 01/16/2013, 18:50. [facility], CT, CT ABD PELVIS W CON, 05/31/2015, 20:40. [facility], US, US PELVIC COMPLETE, 01/03/2021, 15:24. FINDINGS: Image quality: Excellent. Lung bases: Unremarkable. Heart: No significant findings. ABDOMEN: Liver: Normal size. Mild hepatic steatosis.. Gallbladder: Contracted. No radiopaque gallstones. Biliary ducts: Unremarkable. Pancreas: Unremarkable. Spleen: Unremarkable. Adrenal Glands: Unremarkable. Kidneys and Ureters: Normal size and symmetrical enhancement. There are a couple of low-density nodules in left kidney, most likely renal cysts. No stones or hydronephrosis. Stomach and Bowel: There are postsurgical changes with total colectomy. A J-pouch is noted. There is moderate amount of stool in J pouch. Proximally, small bowel loops are mildly distended measuring up to 3.2 cm in diameter. No transitional point is identified. Stomach appears normal. Appendix is not visualized. No inflammatory changes in the right lower quadrant to suggest acute appendicitis. Peritoneum: No abnormal intraperitoneal fluid. No free air. Ventral Wall: No hernia. Abdominal Nodes: No retroperitoneal or mesenteric adenopathy by size criteria. Vessels: Aorta and inferior vena cava are normal in size. PELVIS: Pelvic Organs: There is a 3.5 x 3.6 cm mass like structure in the right adnexa, likely associated with the right ovary. A 1.8 x 2.2 cm simple cyst is seen in the right adnexa posterior to the masslike structure. Left ovary is not visualized. Uterus is normal. No free fluid in the cul-de-sac. Bladder: Unremarkable. Pelvic Nodes: No enlarged lymph nodes. Miscellaneous: No inguinal hernias are seen. Bones: Unremarkable. IMPRESSION: 1. There is total colectomy. There is a J-pouch with stool and air. Small bowel loops are mildly distended. No transitional point is identified. The findings are most likely secondary to ileus. 2. A 3.5 x 3.6 cm masslike structure in the pelvis, most likely associated with the right ovary. This could represent a hemorrhagic cyst but a solid mass cannot be excluded. Recommend pelvic ultrasound for follow-up evaluation. 3. Mild hepatic steatosis. 4. A couple of left renal cysts. Dictated by: Cora Poe M.D. on 02/06/2022 at 16:24 Approved by: Cora Poe M.D. on 02/06/2022 at 16:42
[2022-02-06 15:45] LABS: Alanine Aminotransferase 17 IU/L (<35); Albumin 4.6 g/dL (3.5-5.0); Albumin Globulin Ratio 1.5 (1.0-2.8); Alkaline Phosphatase 102 U/L (38-126); Aspartate Aminotransferase 19 IU/L (14-36); Bilirubin Total 0.4 mg/dL (0.2-1.3); Blood Urea Nitrogen 15 mg/dL (7-17); Calcium 9.4 mg/dL (8.4-10.2); Carbon Dioxide 29 mmol/L (22-32); Chloride 102 mmol/L (98-107); Estimated Glomerular Filt Rate > 60 mL/min (>60); Glucose 174 mg/dL (70-100); HEMOLYSIS < 15 (0-50); Lipase 115 U/L (23-300); Potassium 4.2 mmol/L (3.4-5.1); Sodium 138 mmol/L (137-145); Total Protein 7.6 g/dL (6.3-8.2)
--- NOTE | 2022-02-06 16:47 | DI.US.S_ITS ---
PROCEDURE: US PELVIC COMPLETE INDICATIONS: RLQ pain, right ovarian mass on CT TECHNIQUE: Real-time scanning was performed of the pelvic organs, with image documentation. Additional endovaginal scanning was necessary due to incomplete visualization of the adnexal and endometrial structures by transabdominal scanning. COMPARISON: [facility], CT, CT ABDOMEN PELVIS W CON, 02/06/2022, 15:58. [facility], US, US PELVIC COMPLETE, 01/03/2021, 15:24. FINDINGS: Uterus: Uterus is retroverted and normal in size at 7.7 x 3.2 x 5.5 cm. The myometrium is homogeneous. The endometrium measures 5.6 mm combined thickness. No focal uterine Ovaries: The right ovary measures 5.2 x 3.9 x 3.7 cm. There is 30 mm x 26 mm x 22 mm hypoechoic focus within the right ovary without internal vascularity. 19 mm simple appearing ovarian cyst is present. Left ovary is surgically absent. Other: No pathologic free abdominal or pelvic fluid. IMPRESSION: 1. Right adnexal focus as described above, consistent with a hemorrhagic cyst. Follow-up pelvic ultrasound in 6 weeks could be performed to ensure resolution, and to exclude underlying malignancy, if clinically indicated. We strive to produce accurate, complete, and clear reports of imaging services. To assist us in improving patient care, this report was composed using standard report templates and voice recognition software. Therefore, it may contain abnormal punctuation, insertions and/or omissions. Occasional wrong-word or sound-alike substitutions may occur. Though we review the report and make efforts to correct it, we do recommend that the report be read carefully in proper context to recognize any text inaccuracies. Dictated by: Blanca Irizarry M.D. on 02/06/2022 at 17:50 Approved by: Blanca Irizarry M.D. on 02/06/2022 at 17:52
[2022-02-06 18:29] VITALS: BP 104/59; PULSE 56; RESP 16; O2SAT 97
--- NOTE | 2022-02-06 18:40 | ED_ITS ---
HPI - Abdominal Pain <Jesenia Townsend PA-C - Last Filed: 02/06/22 18:53> General Chief Complaint: Abdominal Pain Stated Complaint: Partial Obstruction, HX Chronic Obstruction Time Seen by Provider: 02/06/22 15:25 Source: patient Mode of arrival: Ambulatory History of Present Illness HPI narrative: Patient is a 36-year-old female presenting with right lower quadrant pain for 1 day. She reports this pain as sharp and it radiates down into her pelvis and up toward her flank. Pain is worse when having a bowel movement. She additionally reports abdominal distension, liquid stool, and nausea. She denies any vomiting, headache, dizziness, chest pain, or shortness of breath. She has a history of ulcerative colitis treated. She had a colectomy with J-pouch with multiple abdominal surgeries and reported adhesions. She has had multiple bowel obstructions in the past. She also reports surgical removal of her left ovary due to an ovarian cyst. Related Data Previous Rx's Medication Instructions Recorded blood sugar diagnostic #400 each 06/02/19 blood-glucose meter #1 each 06/02/19 lancets #400 each 06/02/19 pen needle, diabetic 32 gauge x #300 each 06/02/1911/26 insulin glargine 100 unit/mL (3 10 unit (0.1 mL) SUBCUT DAILY #15 06/29/19 mL) subcutaneous pen (Lantus ml Solostar U-100 Insulin) insulin glargine 100 unit/mL (3 10 unit (0.1 mL) SUBCUT .QHS #15 ml 07/12/19 mL) subcutaneous pen (Basaglar KwikPen U-100 Insulin) insulin aspart U-100 100 unit/mL 3 unit (0.03 mL) SUBCUT TID #15 ml 10/30/19 (3 mL) subcutaneous pen (Novolog Flexpen U-100 Insulin aspart) albuterol sulfate 90 mcg/actuation 2 puff INHALATION Q4-6H PRN #8.5 g 06/08/21 aerosol inhaler medroxyprogesterone 10 mg tablet 20 mg PO .COMPLEX #100 tab 07/29/21 Allergies Allergy/AdvReac Type Severity Reaction Status Date / Time No Known Drug Allergies Allergy Verified 02/06/22 13:51 Review of Systems <Jesenia Townsend PA-C - Last Filed: 02/06/22 18:53> Review of Systems Narrative: GENERAL: Denies fatigue, fever, or chills HEENT: Denies ear pain, vision changes, sore throat, or difficulty swallowing RESPIRATORY: Denies shortness of breath, cough, or wheezing CARDIOVASCULAR: Denies chest pain, pressure, palpitations, or edema GASTROINTESTINAL: See HPI. : Denies dysuria, frequency, hematuria, or flank pain MUSCULOSKELETAL: Denies weakness, arthralgias, or myalgias SKIN: No rash, pruritis, or erythema NEUROLOGIC: Denies weakness, dizziness, headache, numbness, tingling or confusion PSYCHIATRIC: No concerning psychosocial issues. Patient History <Jesenia Townsend PA-C - Last Filed: 02/06/22 18:53> Medical History Colitis Endometrial polyp Right ovarian cyst Small bowel obstruction due to adhesions Surgical History H/O colectomy (2002) History of bowel resection History of removal of ovarian cyst Status post ovarian cystectomy Family History Brother Age: 33 Mental health problem Father Age: 57 High cholesterol Grandfather Age: 70 Heart disease Social History household members: none Smoking Status: Current every day smoker alcohol intake: current Smoking Status: Current every day smoker alcohol intake frequency: holidays/special occasions only Substance Use Type: marijuana Exam <Jesenia Townsend PA-C - Last Filed: 02/06/22 18:53> Narrative Exam Narrative: GENERAL: 36 year old patient appears stated age. Well-developed patient, in mild distress. HEAD: Atraumatic. Normocephalic. EYES: Pupils equal round and reactive. Extraocular motions intact. No scleral icterus. No injection or drainage. ENT: Nose without bleeding, purulent drainage. Throat without erythema, tonsillar hypertrophy or exudate. Airway patent. NECK: Trachea midline. Non tender CARDIOVASCULAR: Regular rate and rhythm without murmurs, gallops, or rubs. RESPIRATORY: Clear to auscultation. Breath sounds equal bilaterally. No wheezes, rales, or rhonchi. GASTROINTESTINAL: Abdomen soft, nondistended. Pain elicited with palpation of right lower quadrant. EXTREMITIES: No edema or joint tenderness. BACK: Nontender without deformity or crepitance. No flank tenderness. NEURO: AOx3. SKIN: No rash or erythema of visible areas Initial Vital Signs Initial Vital Signs: Vital Signs Temperature 97.2 F L 02/06/22 13:46 Pulse Rate 63 02/06/22 13:46 Respiratory Rate 16 02/06/22 13:46 Blood Pressure 124/72 02/06/22 13:46 Pulse Oximetry 98 02/06/22 13:46 <Maricruz Pike DO - Last Filed: 02/07/22 19:35> Initial Vital Signs Initial Vital Signs: Vital Signs Temperature 97.2 F L 02/06/22 13:46 Pulse Rate 63 02/06/22 13:46 Respiratory Rate 16 02/06/22 13:46 Blood Pressure 124/72 02/06/22 13:46 Pulse Oximetry 98 02/06/22 13:46 Course <Jesenia Townsend PA-C - Last Filed: 02/06/22 18:53> Orders Ordered: ED Orders 02/06/22 15:17 Complete Blood Count AUTO DIFF Stat Comprehensive Metabolic Panel Stat Lipase Stat 02/06/22 15:43 CT abdomen pelvis w con Stat 02/06/22 16:47 US pelvic complete Stat Vital Signs Vital signs: Vital Signs - 8 hr 02/06/22 13:46 02/06/22 18:29 Temperature 97.2 F L Pulse Rate 63 56 L Respiratory Rate 16 16 Blood Pressure 124/72 104/59 L Pulse Oximetry 98 97 <Maricruz Pike DO - Last Filed: 02/07/22 19:35> Orders Ordered: ED Orders 02/06/22 15:17 Complete Blood Count AUTO DIFF Stat Comprehensive Metabolic Panel Stat Lipase Stat 02/06/22 15:43 CT abdomen pelvis w con Stat 02/06/22 16:47 US pelvic complete Stat Vital Signs Vital signs: Vital Signs - 8 hr 02/06/22 13:46 02/06/22 18:29 Temperature 97.2 F L Pulse Rate 63 56 L Respiratory Rate 16 16 Blood Pressure 124/72 104/59 L Pulse Oximetry 98 97 MDM - Abdominal Pain <Jesenia Townsend PA-C - Last Filed: 02/06/22 18:53> Lab Data Result diagrams: 02/06/22 15:17 02/06/22 15:17 Labs: Lab Results 02/06/22 02/06/22 Range/Units 15:17 15:17 WBC 6.2 (4.5-11.0) X10^3/uL RBC 4.79 (4.0-5.2) X10^6/uL Hgb 15.0 (12.0-16.0) g/dL Hct 43.8 (36-46) % MCV 91.3 (80-100) fL MCH 31.4 (26-34) PG MCHC 34.4 (30-36) % RDW 13.7 (11.6-14.8) % Plt Count 195 (150-400) X10^3/uL Neut % (Auto) 55.9 (50-75) % Lymph % (Auto) 32.3 (25-40) % Meigs % (Auto) 7.9 (3-14) % Eos % (Auto) 2.9 (2-4) % Baso % (Auto) 1.0 (0-2) % Neut # (Auto) 3500 (4429-0227) /uL Lymph # (Auto) 2000 (2069-0920) /uL Meigs # (Auto) 500 (0-900) /uL Eos # (Auto) 200 (0-450) /uL Baso # (Auto) 100 (0-100) /uL Sodium 138 (137-145) mmol/L Potassium 4.2 (3.4-5.1) mmol/L Chloride 102 (98-107) mmol/L Carbon Dioxide 29 (22-32) mmol/L BUN 15 (7-17) mg/dL Creatinine 0.60 (0.52-1.04) mg/dL Estimated GFR > 60 (>60) mL/min BUN/Creatinine Ratio 25.0 H (6-22) Glucose 174 H (70-100) mg/dL Calcium 9.4 (8.4-10.2) mg/dL Total Bilirubin 0.4 (0.2-1.3) mg/dL AST 19 (14-36) IU/L ALT 17 (<35) IU/L Alkaline Phosphatase 102 (38-126) U/L Total Protein 7.6 (6.3-8.2) g/dL Albumin 4.6 (3.5-5.0) g/dL Globulin 3.0 (1.7-4.1) g/dL Albumin/Globulin Ratio 1.5 (1.0-2.8) Lipase 115 (23-300) U/L Point of care testing: Point of Care Testing Test Results Negative Urine Dip Bedside Urine Glucose Negative Bedside Urine Bilirubin - Negative Bedside Urine Ketone +/- 5 Urine Specific Liberty 1.01 Bedside Urine Occult Blood - Negative Bedside Urine pH 5.5 Bedside Urine Protein - Negative Bedside Urine Urobilinogen - Negative Bedside Urine Nitrite - Negative Bedside Urine Leukocytes - Negative Esterase Imaging Data CT scan - abdomen/pelvis: Radiologist's Impression: [address] [address] [address] Scan Report Signed Patient: Katiuska Jeronimo MR#: [id number] : 1985 Acct:[id number] Age/Sex: 36 / F Date of Service: 02/06/22 Loc: ED Accession Number: [id number] ?? Procedure: CT abdomen pelvis w con Ordering Provider: Jesenia Townsend P.A-C PROCEDURE:? CT ABDOMEN PELVIS W CON ? INDICATIONS:? RLQ pain, hx small bowel obstruction.? History of ulcerative col itis and total colectomy. ? TECHNIQUE:? After the administration of oral and IV contrast, axial sections were acquired from the lung bases to the pubic symphysis.? Coronal and sagittal reformats were performed.? For radiation dose reduction, the following was used:? automated exposure control, adjustment of mA and/or kV according to patient size. ? COMPARISON:? US, PELVIC COMPLETE, 11/26/2016, 10:18.? [facility], CT, ABD/PELVIS W/CON (PNL), 01/16/2013, 18:50.? [facility], CT, CT ABD PELVIS W CON, 05/31/2015, 20:40.? [facility], US, US PELVIC COMPLETE, 01/03/2021, 15:24. ? FINDINGS:? Image quality:? Excellent.? ? Lung bases:? Unremarkable.? ? Heart:? No significant findings. ? ? ABDOMEN: Liver:? Normal size.? Mild hepatic steatosis..? ? Gallbladder:? Contracted.? No radiopaque gallstones.? ? Biliary ducts:? Unremarkable.? ? Pancreas:? Unremarkable.? ? Spleen:? Unremarkable.? ? Adrenal Glands:? Unremarkable.? ? Kidneys and Ureters:? Normal size and symmetrical enhancement.? There are a couple of low-density nodules in left kidney, most likely renal cysts.? No stones or hydronephrosis.? ? ? Stomach and Bowel:? There are postsurgical changes with total colectomy.? A J- pouch is noted.? There is moderate amount of stool in J pouch.? Proximally, small bowel loops are mildly distended measuring up to 3.2 cm in diameter.? No transitional point is identified.? Stomach appears normal.? Appendix is not visualized.? No inflammatory changes in the right lower quadrant to suggest acute appendicitis. Peritoneum:? No abnormal intraperitoneal fluid.? No free air.? ? Ventral Wall: ? No hernia.? Abdominal Nodes:? No retroperitoneal or mesenteric adenopathy by size criteria.? Vessels:? Aorta and inferior vena cava are normal in size.? ? PELVIS: Pelvic Organs:? There is a 3.5 x 3.6 cm mass like structure in the right adnexa, likely associated with the right ovary.? A 1.8 x 2.2 cm simple cyst is seen in the right adnexa posterior to the masslike structure.? Left ovary is not visualized.? Uterus is normal.? No free fluid in the cul-de-sac. Bladder:? Unremarkable.? ? Pelvic Nodes: No enlarged lymph nodes.? Miscellaneous: No inguinal hernias are seen. ? ? ? Bones:? Unremarkable.? IMPRESSION:? ? 1. There is total colectomy.? There is a J-pouch with stool and air.? Small bowel loops are mildly distended.? No transitional point is identified.? The findings are most likely secondary to ileus. ? 2. A 3.5 x 3.6 cm masslike structure in the pelvis, most likely associated with the right ovary.? This could represent a hemorrhagic cyst but a solid mass cannot be excluded.? Recommend pelvic ultrasound for follow-up evaluation. ? 3. Mild hepatic steatosis. ? 4. A couple of left renal cysts.? Dictated by: Cora Poe M.D. on 02/06/2022 at 16:24 ? ? Approved by: Cora Poe M.D. on 02/06/2022 at 16:42 ? 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 Procedure: US pelvic complete Ordering Provider: Jesenia Townsend P.A-C PROCEDURE:? US PELVIC COMPLETE ? INDICATIONS:? RLQ pain, right ovarian mass on CT ? TECHNIQUE:? Real-time scanning was performed of the pelvic organs, with image doc umentation.? Additional endovaginal scanning was necessary due to incomplete visualization of the adnexal and endometrial structures by transabdominal scanning.? ? COMPARISON:? [facility], CT, CT ABDOMEN PELVIS W CON, 02/06/2022, 15:58.? [facility], US, US PELVIC COMPLETE, 01/03/2021, 15:24. ? FINDINGS:? ?? Uterus:? Uterus is retroverted and normal in size at 7.7 x 3.2 x 5.5 cm. The myometrium is homogeneous. ? The endometrium measures 5.6 mm combined thickness.? No focal uterine ? Ovaries:? The right ovary measures 5.2 x 3.9 x 3.7 cm.? There is 30 mm x 26 mm x 22 mm hypoechoic focus within the right ovary without internal vascularity.? 19 mm simple appearing ovarian cyst is present.? Left ovary is surgically absent. ? Other:? No pathologic free abdominal or pelvic fluid. ? ? IMPRESSION:? 1. Right adnexal focus as described above, consistent with a hemorrhagic cyst.? Follow-up pelvic ultrasound in 6 weeks could be performed to ensure resolution, and to exclude underlying malignancy, if clinically indicated.? ? ? We strive to produce accurate, complete, and clear reports of imaging services. To assist us in improving patient care, this report was composed using standard report templates and voice recognition software. Therefore, it may contain abnormal punctuation, insertions and/or omissions. Occasional wrong-word or sound-alike substitutions may occur. Though we review the report and make efforts to correct it, we do recommend that the report be read carefully in proper context to recognize any text inaccuracies. ? ? Dictated by: Blanca Irizarry M.D. on 02/06/2022 at 17:50 ? ? Approved by: Blanca Irizarry M.D. on 02/06/2022 at 17:52 ? MDM Narrative Medical decision making narrative: Patient is a 36-year-old female presenting with right lower quadrant pain for 1 day. Patient has a past medical history of ulcerative colitis, colectomy with J-pouch, multiple abdominal surgeries, and multiple bowel obstructions. A CT abdomen and pelvis with contrast was ordered which showed no definitive signs of obstruction, but did show a 3.5 x 3.6 cm right ovarian mass. CT findings were discussed over the phone with the radiologist. A pelvic ultrasound was ordered which showed a right hemorrhagic ovarian cyst. Based on the above, her ovarian cyst is likely what is causing her symptoms. She has a history of a left ovarian cyst that was surgically removed along with her left ovary. I instructed her to follow-up with her business process expert for further evaluation and management. She is instructed to return to the ER with worsening pain, nausea, vomiting, fever, changes in her bowel movements, or any other concerning symptoms. Findings and discharge diagnosis discussed with patient/family followed by verbalization of understanding Return precautions discussed with patient/family whom verbalize understanding. <Maricruz Pike, DO - Last Filed: 02/07/22 19:35> Lab Data Labs: Lab Results 02/06/22 02/06/22 Range/Units 15:17 15:17 WBC 6.2 (4.5-11.0) X10^3/uL RBC 4.79 (4.0-5.2) X10^6/uL Hgb 15.0 (12.0-16.0) g/dL Hct 43.8 (36-46) % MCV 91.3 (80-100) fL MCH 31.4 (26-34) PG MCHC 34.4 (30-36) % RDW 13.7 (11.6-14.8) % Plt Count 195 (150-400) X10^3/uL Neut % (Auto) 55.9 (50-75) % Lymph % (Auto) 32.3 (25-40) % Meigs % (Auto) 7.9 (3-14) % Eos % (Auto) 2.9 (2-4) % Baso % (Auto) 1.0 (0-2) % Neut # (Auto) 3500 (9397-3041) /uL Lymph # (Auto) 2000 (4888-1306) /uL Meigs # (Auto) 500 (0-900) /uL Eos # (Auto) 200 (0-450) /uL Baso # (Auto) 100 (0-100) /uL Sodium 138 (137-145) mmol/L Potassium 4.2 (3.4-5.1) mmol/L Chloride 102 (98-107) mmol/L Carbon Dioxide 29 (22-32) mmol/L BUN 15 (7-17) mg/dL Creatinine 0.60 (0.52-1.04) mg/dL Estimated GFR > 60 (>60) mL/min BUN/Creatinine Ratio 25.0 H (6-22) Glucose 174 H (70-100) mg/dL Calcium 9.4 (8.4-10.2) mg/dL Total Bilirubin 0.4 (0.2-1.3) mg/dL AST 19 (14-36) IU/L ALT 17 (<35) IU/L Alkaline Phosphatase 102 (38-126) U/L Total Protein 7.6 (6.3-8.2) g/dL Albumin 4.6 (3.5-5.0) g/dL Globulin 3.0 (1.7-4.1) g/dL Albumin/Globulin Ratio 1.5 (1.0-2.8) Lipase 115 (23-300) U/L Point of care testing: Point of Care Testing Test Results Negative Urine Dip Bedside Urine Glucose Negative Bedside Urine Bilirubin - Negative Bedside Urine Ketone +/- 5 Urine Specific Liberty 1.01 Bedside Urine Occult Blood - Negative Bedside Urine pH 5.5 Bedside Urine Protein - Negative Bedside Urine Urobilinogen - Negative Bedside Urine Nitrite - Negative Bedside Urine Leukocytes - Negative Esterase Discharge Plan Departure Patient Disposition: Home Clinical Impression: Right ovarian cyst Activity Restrictions/Additional Instructions: *You have been diagnosed with a right ovarian cyst. You should take ibuprofen as needed for pain management. You should follow up with your business process expert for further evaluation and management. Please return back to the ER with worsening pain, nausea, vomiting, fever or other concerning symptoms. *What to do: *Please continue to take your regular medications as directed. [ ] New medication prescriptions sent to your pharmacy: [ ] [ ] New medication written as a paper prescription [X] No new medications given *Please follow up with your primary care provider in 2-3 days, call for an appointment. Let them know you were seen in the Emergency Department and that we ask that you be seen in follow up. We will electronically transmit a record of today's note if your PCP is in our system *If you do not have a primary care provider please contact the [facility] Call Center at [phone] and they can help get you set up with a doctor in the community. *Return to Emergency Department if you should have any new, worsening or concerning symptoms, such as [fever greater than 101 F, shaking chills, worsening pain, persistent vomiting or other bothersome symptoms] Prescriptions: No Action (DME) blood-glucose meter kit See Rx Instructions .ROUTE .MEDSUPPLY Qty: 1 0RF Rx Instructions: use glucometer to check blood sugar three to four times a day (DME) lancets misc See Rx Instructions .ROUTE .MEDSUPPLY Qty: 400 3RF Rx Instructions: use lancets to check blood sugar three to four times a day (DME) pen needle, diabetic 32 gauge x 3/16 needle See Rx Instructions .ROUTE .MEDSUPPLY Qty: 300 3RF Rx Instructions: use with insulin pen three times a day (DME) blood sugar diagnostic strip See Rx Instructions .ROUTE .MEDSUPPLY Qty: 400 3RF Rx Instructions: use strips to check blood sugar three to four times a day Basaglar KwikPen U-100 Insulin 100 unit/mL (3 mL) insulin pen 10 unit SUBCUT .QHS Qty: 15 1RF Novolog Flexpen U-100 Insulin 100 unit/mL (3 mL) insulin pen 3 unit SUBCUT TID Qty: 15 0RF Rx Instructions: PATIENT NEEDS TO EST. CARE W/NEW PCP PRIOR TO FUTURE RENEWALS. PLEASE CALL CLINIC TO SCHED. APPT. 10/30/19 medroxyprogesterone 10 mg tablet 20 mg PO .COMPLEX Qty: 100 0RF Rx Instructions: Take 2tabs Q2H until bleeding stops/slows, then 2t [id number],2t [id number],2t [id number],2t [id number],2t [id number] Lantus Solostar U-100 Insulin 100 unit/mL (3 mL) insulin pen 10 unit SUBCUT DAILY Qty: 15 1RF albuterol sulfate 90 mcg/actuation HFA aerosol inhaler 2 puff inhalation Q4-6H PRN (Reason: shortness of breath or wheezing) Qty: 8.5 0RF Referrals: Miscellaneous,Doctor, [Primary Care Provider] - <Maricruz Pike DO - Last Filed: 02/07/22 19:35> Cosign ED Attending Cosignature Attestation: I was immediately available in the department for consultation. Documentation has been reviewed.
== END 2022-02-06 18:32 | disposition home or self-care (01) ==
PROVIDERS: Emergency Medicine; Emergency Provider Physician Assistant
DX: N83.201 Unspecified ovarian cyst, right side (principal)
CPT/HCPCS: 74177; 76830; 76856; 80053; 81003; 81025; 83690; 85025; 99283; Q9967